=== PATIENT | male | born 1985 | race Caucasian/White ===

== ENCOUNTER 2025-01-23 14:10 | Outpatient (REF) | payer OTHER, SELFPAY ==
[2025-01-31 15:13] LABS: Testosterone, Free 73.8 pg/mL (35.0-155.0); Testosterone, Total 615 ng/dL (250-1100)
== END 2025-01-23 14:11 | disposition home or self-care (01) ==
LOC: HO.MANLDS 14:10
PROVIDERS: Visit Provider Internal Medicine
DX: R53.83 Other fatigue (principal)
CPT/HCPCS: 36415; 84402; 84403